=== PATIENT | female | born 2000 | race Two or more races ===

== ENCOUNTER 2024-12-23 23:57 | Inpatient (IN) | payer MEDICAID, SELFPAY ==
[2024-12-24] VITALS (76 sets, daily range): BP systolic 76–189; BP diastolic 37–148; PULSE 68–151; RESP 16–99; TEMP 36.7–37.5; O2SAT 83–100; BMI 31.9
[2024-12-24 03:33] LABS: Basophils % (Auto) 0 % (0-2.5); Eosinophils # (Auto) 0.1 Thou/mm3 (0.0-0.5); Eosinophils % (Auto) 0 % (0-10); Hematocrit 39.1 % (36.0-46.0); Hemoglobin 13.3 g/dL (12.0-16.0); Immature Granulocytes % (Auto) 0 % (0-0); Immature Granulocytes Auto 0.05 Thou/mm3 (0.00-0.00); Lymphocytes # (Auto) 2.5 Thou/mm3 (1.0-4.8); Lymphocytes % (Auto) 18 % (10-50); Mean Corpuscular Hemoglobin 28.9 pg (25.0-35.0); Mean Corpuscular Volume 85 fL (80-100); Monocytes # (Auto) 0.9 Thou/mm3 (0.0-0.8); Monocytes % (Auto) 7 % (0-12); Neutrophils # (Auto) 10.6 Thou/mm3 (1.8-7.7); Neutrophils % (Auto) 75 % (37-80); Nucleated Red Blood Cell % 0 /100 WBC (0); Platelet Count 234 Thou/mm3 (140-440); RDW Standard Deviation 42.7 fL (36.4-46.3); White Blood Count 14.2 Thou/mm3 (3.6-11.0)
[2024-12-24] MEDS: RINGERS LACTATED 1000 ML 1,000 ML 100 ML IV ×2 (03:35→09:05)
[2024-12-24 05:09] LABS: Syphilis Nonreactive (Nonreactive)
[2024-12-24] MEDS: OXYTOCIN in NS 30 units 30 UNIT/500 ML BAG IV (11:46)
--- NOTE | 2024-12-24 12:51 | ESHP_ITS ---
Documentation for date of: 12/24/24 OB Labor/Induct. HPI History of Present Illness Chief complaint: Contractions : 2 Para: 2 Term pregnancies: 1 pregnancies: 0 Living children: 1 History of Abortions: Spontaneous and Elective: 0 History of Vaginal deliveries: 1 History of sections: No History of : No Date of last menstrual period: 03/14/25 SERA: 12/19/24 Gestational Age (weeks): 40 Gestational Age (days): 5 Gestational age based on last menstrual period: -11 History of present illness: The patient is a 24-year-old -0-0-1 at 40-5/7 weeks presented in early labor she walked for about an hour to 2 hours and may change from 3 cm to 4 to 5 cm. She was admitted. All care is up-to-date and on the chart with [facility]. Of note she has an induction scheduled later this week for postdates. Group B strep is negative. History of Present Dating criteria: LMP confirmed by 1st trimester US Adequate Care: Yes Ultrasounds: normal 1st trimester US Obstetrical complications: none Medical complications: none Labs Maternal Blood Type: A Pos Labs: Positive: Rubella Titre, Negative: RPR, Hepatitis B, HIV, Chlamydia, Gonorrhea and Group Beta Strep and Unknown: Herpes Type 1, Herpes Type 2 and Covid-19 Past Medical History Surgical History SURGICAL: Negative Section Meds Home Medications and Allergies Home Medications ?Medication ?Instructions ?Recorded ?Confirmed ?Type vits no.130-ferrous fum 1 tab PO QDAY 5 12/24/24 History 27 mg iron-folic acid 800 mcg tablet ( Vitamin) Allergies Allergy/AdvReac Type Severity Reaction Status Date / Time No Known Allergies Allergy Verified 12/24/24 00:32 OB Exam Physical Exam Vital signs: Temp Pulse Resp BP Pulse Ox 98.5 F 87 16 95/50 L 100 12/24/24 07:18 12/24/24 12:26 12/24/24 00:16 12/24/24 12:26 12/24/24 06:27 Detailed Labor and Delivery Exam Dilation (cm): 4-5 Effacement (%): 70 Cervix position: posterior station: -2 Consistency: medium Presentation: Vertex Membranes: intact monitor accelerations: 15x15 monitor decelerations: None terminal manager variability: Moderate (11-25) Tachysystole: No Contraction intensity: Moderate OB Results Labs 12/24/24 03:22 Labs: Short CBC 12/24/24 Range/Units 03:22 WBC 14.2 H (3.6-11.0) Thou/mm3 Hgb 13.3 (12.0-16.0) g/dL Hct 39.1 (36.0-46.0) % Plt Count 234 (140-440) Thou/mm3 OB Assessment & Plan Assessment and Plan (1) Supervision of high risk in third trimester: Status: Acute Assessment and plan: Admit patient. Labor epidural if desired. Anticipate .
[2024-12-24] MEDS: MISOPROSTOL 200 mCg TABLET 800 MCG PR (13:35)
[2024-12-24] MEDS: OXYTOCIN in NS 20 units 20 UNIT/1,000 ML BAG 125 UNIT IV (13:38)
[2024-12-24] MEDS: OXYTOCIN INJ 10 UNIT/ML VIAL IM (13:38)
[2024-12-24] MEDS: BENZO/LANO/ALOE (Dermoplast) 60 GM CAN 1 SPRAY TOP (13:46)
[2024-12-24] MEDS: TRANEXAMIC ACID 1,000 MG IVPB 1,000 MG/100 ML BAG 200 MG IV (13:46)
--- NOTE | 2024-12-24 13:57 | OBDSUM_ITS ---
Data ([place]) Data Hx Section: No : 2 Term: 1 : 0 Livin Abortions: Spontaneous & Theraputic: 0 Delivery Data ([place]) Labor Data Initiation of labor: Spontaneous Induction/Augmentation Agent: Pitocin ROM date: 12/24/24 ROM time: 12:55 Amniotic membrane rupture type: Artificial Amniotic fluid description: Particulate Meconium (small fluid at AROM) Delivery Data EDC: 12/19/24 EDC calculated by:: LMP/early US confirmation Date of arrival to unit: 12/23/24 Time of arrival to unit: 23:57 Onset of labor date: 12/24/24 Onset of labor time: 04:40 Complete dilation date: 12/24/24 Complete dilation time: 12:55 [place] delivery date: 12/24/24 delivery time: 13:32 Gestational age (weeks): 40 Gestational age (days): 5 Placenta delivery date: 12/24/24 Placenta delivery time: 13:38 Stage 1 total time: Labor - Stage 1 Duration 8 hours and 15 minutes Delivered by: Ann Marie Rodriguez Delivery nurse: Afshin Leach nurse: Seb Schroeder [employer] Supervisor at delivery: No Other staff at delivery: FOB at bedside Delivery Method Delivery method: Normal Vaginal Delivery Presentation: Vertex position: OA Anesthesia Type Anesthesia Type: Epidural Delivery Room Medications Delivery room medications given: Pitocin Delivery room medications: Pitocin 10 u IM, Pitocin 20 u IV and Cytotec 800 ME Placenta Placenta delivery description: Spontaneous Cord blood sent to lab: Yes cord blood collection: Cord Blood Type Episiotomy Episiotomy description: None Lacerations #1: Periurethral: small, bilat Perineal repair Sutures used for repair: 3.0 Vicryl EBL Estimated blood loss (ml): 400 Umbilical Cord cord description: 3 Vessels, Nuchal Cord (x1) and Loose [place] Data ([place]) Data order: 1 's gender: Male Identification band number: [id number] weight (gms): 3700 g Weight (pounds): 8 lbs and 2.5 ozs 1 minute: 8 5 minutes: 9
[2024-12-24] MEDS: IBUPROFEN TAB 400 MG TABLET 800 MG PO (14:15)
[2024-12-24] MEDS: DOCUSATE SOD 100 MG CAPSULE PO (20:25)
[2024-12-24 23:35] LABS: Basophils % (Auto) 0 % (0-2.5); Eosinophils # (Auto) 0.1 Thou/mm3 (0.0-0.5); Eosinophils % (Auto) 0 % (0-10); Hematocrit 32.6 % (36.0-46.0); Hemoglobin 11.2 g/dL (12.0-16.0); Immature Granulocytes % (Auto) 0 % (0-0); Immature Granulocytes Auto 0.04 Thou/mm3 (0.00-0.00); Lymphocytes # (Auto) 2.3 Thou/mm3 (1.0-4.8); Lymphocytes % (Auto) 16 % (10-50); Mean Corpuscular HGB Conc 34.4 g/dl (31.0-37.0); Mean Corpuscular Hemoglobin 29.4 pg (25.0-35.0); Mean Corpuscular Volume 86 fL (80-100); Monocytes # (Auto) 1.3 Thou/mm3 (0.0-0.8); Monocytes % (Auto) 9 % (0-12); Neutrophils # (Auto) 11.1 Thou/mm3 (1.8-7.7); Neutrophils % (Auto) 75 % (37-80); Nucleated Red Blood Cell % 0 /100 WBC (0); Platelet Count 288 Thou/mm3 (140-440); Red Blood Count 3.81 Miln/mm3 (4.00-5.20); White Blood Count 14.8 Thou/mm3 (3.6-11.0)
[2024-12-25] VITALS: BP 100/53; PULSE 74; RESP 16; TEMP 36.6; O2SAT 98
[2024-12-25 03:51] VITALS: BP 109/73; PULSE 73; RESP 16; TEMP 36.6; O2SAT 98
[2024-12-25 08:00] VITALS: BP 104/64; PULSE 71; RESP 16; TEMP 36.8; O2SAT 98
[2024-12-25] MEDS: DOCUSATE SOD 100 MG CAPSULE PO (08:08)
[2024-12-25 11:50] VITALS: BP 116/75; PULSE 77; RESP 17; TEMP 36.7; O2SAT 98
--- NOTE | 2024-12-25 12:29 | ESPR_ITS ---
Subjective Subjective Interval history: no complaints of dizziness, no complaints of pain, breast feeding Exam Vital Signs Temp Pulse Resp BP Pulse Ox 98.0 F 77 17 116/75 98 12/25/24 11:50 12/25/24 11:50 12/25/24 11:50 12/25/24 11:50 12/25/24 11:50 Narrative Exam Vital signs stable afebrile. Breasts are soft. Fundus firm below asthma- like's. Perineum intact no swelling. Small lochia. Uterus well involuted. Negative Homans' sign. 2+ DTRs. Objective Labs 12/24/24 23:27 Labs: Laboratory Results - last 24 hr 12/24/24 23:27 WBC 14.8 H RBC 3.81 L Hgb 11.2 L D Hct 32.6 L MCV 86 MCH 29.4 MCHC 34.4 RDW Std Deviation 44.0 Plt Count 288 D Neut % (Auto) 75 Lymph % (Auto) 16 Emanuel % (Auto) 9 Eos % (Auto) 0 Baso % (Auto) 0 Neut # (Auto) 11.1 H Lymph # (Auto) 2.3 Emanuel # (Auto) 1.3 H Eos # (Auto) 0.1 Baso # (Auto) 0.0 Immature Gran # (Auto) 0.04 H Absolute Nucleated RBC 0.00 Immature Gran % 0 Nucleated RBC % 0 Assessment & Plan Problem List (1) Supervision of high risk in third trimester: Status: Acute Assessment Comment Assessment comment: 24 hr pp Plan Comment Plan Comment: Discharge home with baby. Continue vitamins and iron. Tylenol ibuprofen for pain. I discussed danger signs and symptoms and ER precautions with parameters. Discussed signs symptoms of infection. Discussed comfort measures for periurethral laceration. Increase fluids. Return in 3 weeks visit Time Spent With Patient Time: Total time spent is greater than 50% in coordination of care (as documented) at patient's floor/unit and/or counseling patient:
--- NOTE | 2024-12-25 12:31 | ESDS_ITS ---
DS: Providers Provider Date of admission: 12/24/24 03:00 Primary care physician: Med Merritt MD Admitting Provider: Valerie Richardson MD ([facility]) Attending Provider on Admission: Alton Chang MD Consults: 12/24/24 14:09 Referral Routine Comment: Attending Provider on DC: Flor Rodriguez CNM Discharging Provider: Flor Rodriguez CNM DS: Diagnosis Problem List Completed Was Problem List Reviewed/Reconciled?: Yes Summary/Hosp Course Brief History: The patient is a 24-year-old -0-0-1 at 40-5/7 weeks presented in early labor she walked for about an hour to 2 hours and may change from 3 cm to 4 to 5 cm. She was admitted. All care is up-to-date and on the chart with [facility]. Of note she has an induction scheduled later this week for postdates. Group B strep is negative. Peripartum Data Delivery Method: Normal Vaginal Delivery Episiotomy Description: None Laceration Description: yes (small PU) complications: none Time Spent with Patient Time attestation: Total time spent providing and/or coordinating discharge services: Exam Vital Signs Temp Pulse Resp BP Pulse Ox 98.0 F 77 17 116/75 98 12/25/24 11:50 12/25/24 11:50 12/25/24 11:50 12/25/24 11:50 12/25/24 11:50 Discharge Plan Plan Patient Disposition: HOME (Self Care) Patient condition on transfer: Stable Prescriptions/Referrals Prescriptions/Med Rec: No Action Vitamin 27 mg iron- 800 mcg tablet 1 tab PO QDAY Referrals: Med Merritt MD [Primary Care Provider] - Patient/Caregiver Discharge Instructions Discharge Activity: resume usual activities Education Materials: After a Vaginal , Breast Care After Print Language: Malay Activity Restrictions/Additional Instructions: Discharge home with baby. Continue vitamins and iron. Tylenol or ibuprofen for pain. Discussed comfort measures for periurethral laceration. Discussed ER precautions and parameters. I reviewed danger signs symptoms with patient and signs and symptoms of infection. Increase fluids. Return in 3 weeks visit Stand Alone Forms: [place] Award Info., Patient Portal Info Letter Discharge Order Discharge Orders: Discharge (Routine); Ordered 12/25/24 Ordered By: Flor Rodriguez Planned Discharge Date 12/25/24
[2024-12-25 15:47] VITALS: BP 114/72; PULSE 74; RESP 16; TEMP 36.7; O2SAT 98
== END 2024-12-25 17:30 | disposition home or self-care (01) | DRG 560 ==
LOC: S4SX 12-24 13:56 → S4NX 12-24 17:17
PROVIDERS: Advanced Practice Midwife; Admitting Provider Obstetrics & Gynecology; PCP Family Medicine; Visit Provider Obstetrics & Gynecology
DX: O48.0 Post-term pregnancy (principal); Z3A.40 40 weeks gestation of pregnancy; Z37.0 Single live birth; O77.0 Labor and delivery complicated by meconium in amniotic fluid; O69.81X0 Labor and delivery complicated by cord around neck, without compression, not applicable or unspecified
CPT/HCPCS: 36415; 59025; 59409; 59899; 85025; 86780; 86850; 86900; 86901; 94762; J2590; J2795; J3490; J7120; S0191; A9270